=== PATIENT | female | born 1970 | race Caucasian/White ===

== ENCOUNTER → 2016-10-28 | Outpatient (CLI) | payer OTHER ==
[~2016-10-28] MED LIST: HYDROCODON-ACE1 EAC1 PO; LOPRESSOR25 PO; METOPROLOL TART25 MG PO; NABUMETONE 750750 M1 PO; NOHOMEMEDICATIONS; NORCO 5-325 TA1 EACH PO; PERCOCET 5-3251 EACH PO; RELAFEN750 MG PO; TRAMADOL 50 MG50 MG PO
== END ==
LOC: RAD 13:53
DX: Z12.31 Encounter for screening mammogram for malignant neoplasm of breast (principal)

== ENCOUNTER → 2016-10-30 | Outpatient (CLI) | payer OTHER | LOC: ULTRA 11:01 | DX: N63 Unspecified lump in breast (principal) ==

== ENCOUNTER 2017-05-13 12:33 | Emergency (ER) | payer OTHER ==
[~2017-05-13] VITALS: Ht 172.7 cm; Wt 95.3 kg
[2017-05-13] MEDS ORDERED: OMEPRAZOLE40 MG PO (12:53)
[2017-05-13] MEDS ORDERED: PEPCID AC20 MG PO (13:18)
[2017-05-13] MEDS ORDERED: BENADRYL25 MG PO (13:18)
[2017-05-13] MEDS ORDERED: PREDNISONE 20 M20 MG PO (13:18)
== END 2017-05-13 13:49 | disposition home or self-care (01) ==
LOC: ER 12:33
DX: L23.9 Allergic contact dermatitis, unspecified cause (principal); F17.210 Nicotine dependence, cigarettes, uncomplicated; Z82.2 Family history of deafness and hearing loss; Z91.018 Allergy to other foods; Z87.440 Personal history of urinary (tract) infections

== ENCOUNTER → 2017-07-01 | Outpatient (CLI) | payer OTHER ==
[~2017-07-01] MED LIST changes: +ACCUNEB SO1.25 MG/1 INH; +ANTIVERT25 MG PO; +BENADRYL25 MG PO; +CLARITIN10 MG PO; +METOCLOPRAMIDE10 MG PO; +OMEPRAZOLE40 MG PO; +PEPCID AC20 MG PO; +PREDNISONE 20 M20 MG PO
== END ==
LOC: ULTRA 11:47
DX: M79.604 Pain in right leg (principal); M79.89 Other specified soft tissue disorders; R60.0 Localized edema

== ENCOUNTER 2017-07-02 15:00 | Emergency (ER) | payer OTHER ==
[~2017-07-02] VITALS: Ht 172.7 cm; Wt 95.3 kg
--- NOTE | ~2017-07-02 | EKG ---
[facility] [address]al [place] [address] ELECTROCARDIOGRAM REPORT Name: KAREN ELISE Room #: [facility] M.R.#: [id number] Admission: Attend Phys: Discharge: Date of : 66 Report #: [id number] THIS REPORT FOR: //name// [facility] ED Test Date: 2017-07-02 Test Time: 15:28:46 Pat Name: KAREN ELISE Department: Room: Gender: F President And Chief Executive Officer: HOLLY : 1970 Requested By: Sukhi Armijo Order Number: [id number] MD: Measurements Intervals [place] Rate: 78 P: 18 OK: 181 QRS: -57 QRSD: 132 T: 15 QT: 415 QTc: 473 Interpretive Statements Sinus rhythm RBBB and LAFB Compared to ECG 08/02/2015 15:12:29 Left anterior fascicular block now present Right bundle-branch block now present [email or web address] By: [id number] Renita Maravilla MD /EPI
[~2017-07-02 15:00] MED LIST changes: -ACCUNEB SO1.25 MG/1 INH; -ANTIVERT25 MG PO; -CLARITIN10 MG PO; -METOCLOPRAMIDE10 MG PO
[2017-07-02 15:48] LABS: ABSOLUTE NEUTROPHILS 4.7 thou/uL (1.4-8.2); BASOPHILS 1.2 % (0.0-2.0); EOSINOPHILS 1.6 % (0.0-3.0); HEMATOCRIT 38.7 % (37.0-47.0); HEMOGLOBIN 13.5 gm/dL (12.0-15.0); MCH 30.8 pg (26.0-34.0); MCV 87.9 fL (80.0-100.0); MONOCYTES 6.7 % (1.0-8.0); PLATELET COUNT 254 thou/uL (150-400); POLYS 65.5 % (36.0-66.0); RDW 13.4 % (10.5-14.5); WBC 7.2 thou/uL (4.0-11.0)
[2017-07-02 15:58] LABS: ANION GAP 9 mmol/L (7-16); BUN 12 mg/dL (7-18); CALCIUM 8.9 mg/dL (8.5-10.1); CHLORIDE 106 mmol/L (98-107); CO2 26 mmol/L (21-32); CREATININE 0.7 mg/dL (0.6-1.0); GLUCOSE 125 mg/dL (74-106); SODIUM 141 mmol/L (136-145)
[2017-07-02 16:05] LABS: ALBUMIN 3.3 g/dL (3.4-5.0); SGOT 25 U/L (15-37); SGPT 28 U/L (30-65); TOTAL BILIRUBIN 0.3 mg/dL (<0.1-1.0); TOTAL PROTEIN 7.1 g/dL (6.4-8.2); TROPONIN-I < 0.04 ng/mL (<0.06)
[2017-07-02 17:09] LABS: URINE BILIRUBIN NEGATIVE (Negative); URINE BLOOD NEGATIVE (Negative); URINE CLARITY CLEAR; URINE COLOR YELLOW; URINE GLUCOSE-RANDOM* NEGATIVE (Negative); URINE KETONES NEGATIVE (Negative); URINE LEUKOCYTES-REFLEX NEGATIVE (Negative); URINE NITRITE-REFLEX NEGATIVE (Negative); URINE PROTEIN (DIPSTICK) NEGATIVE (Negative); URINE UROBILINOGEN 0.2 E.U./dl (0.2-1.0)
[2017-07-02] MEDS ORDERED: ANTIVERT25 MG PO (17:23)
[2017-07-02 17:32] VITALS: BP 116/78
[2017-07-29] MEDS ORDERED: CLARITIN10 MG PO (09:38)
[2017-07-29] MEDS ORDERED: METOCLOPRAMIDE10 MG PO (09:40)
[2017-07-29] MEDS ORDERED: ACCUNEB SO1.25 MG/1 INH (10:05)
== END 2017-07-02 17:59 | disposition home or self-care (01) ==
LOC: ER 15:00
PROVIDERS: Physician Assistant
DX: R55 Syncope and collapse (principal); R51 Headache; R10.9 Unspecified abdominal pain; R42 Dizziness and giddiness; Z88.2 Allergy status to sulfonamides; Z91.018 Allergy to other foods; Z98.890 Other specified postprocedural states

== ENCOUNTER → 2017-08-02 | Outpatient (CLI) | payer OTHER ==
[~2017-08-02] VITALS: Ht 170.2 cm; Wt 102.1 kg
[~2017-08-02] MED LIST changes: +ACCUNEB SO1.25 MG/1 INH; +ANTIVERT25 MG PO; +CLARITIN10 MG PO; +METOCLOPRAMIDE10 MG PO
--- NOTE | ~2017-08-02 | P ---
[facility] [place] [address] PROCEDURE REPORT Name: KAREN ELISE Room #: [facility] Tia#: [id number] Admission: 08/02/17 Attend Phys: Brett Monk Discharge: Date of : 66 Report #: [id number] THIS REPORT FOR: //name// CC: Brett Billy MD DATE OF SERVICE: 08/02/2017 PROCEDURE PERFORMED: Upper endoscopy with biopsies. HISTORY OF PRESENT ILLNESS: The patient is a 47-year-old female with a history of gastroesophageal reflux disease and a history of Allen's esophagus diagnosed by a different car carder several years ago. She has been taking omeprazole b.i.d. She denies any dysphagia. No significant heartburn. She is seen an wire setter for immune system reactions and was started on Reglan recently. She is tolerating this medication well. She denies any side effects. Plan is for upper endoscopy. PROCEDURE: The risks and benefits of the procedure were explained to the patient, those risks including, but not limited to bleeding, perforation, and the risk of sedation. She understood these risks and gave informed consent. Sedation was given using propofol per anesthesia. Next, using a standard Kiten upper endoscope, the scope was placed in the patient's mouth and advanced under direct vision through the esophagus, stomach, and into the second portion of the duodenum. The larynx was normal in appearance. The upper and mid esophagus was normal. In the distal esophagus, a single pink mucosal tongue extended approximately 1 cm above the GE junction. Biopsies were obtained to rule out Allen's esophagus. No evidence of esophagitis. Overall, the gastric mucosa was normal. The pylorus was normal and patent. The duodenal bulb, first and second portion were all normal. The scope was then withdrawn and the procedure terminated. The patient tolerated the procedure well. IMPRESSION: 1. Possible short segment Allen's. 2. Otherwise, normal upper endoscopy. RECOMMENDATIONS: 1. Await biopsy results. 2. Continue PPI therapy. [facility] [address] [place] [address] PROCEDURE REPORT Name: KAREN ELISE Room #: REG ALBERTINA Weber#: [id number] Admission: 08/02/17 Attend Phys: Brett Monk Discharge: Date of : 66 Report #: [id number] Thank you for allowing me to participate in her care. <ELECTRONICALLY SIGNED> By: Brett Gusman MD 08/02/17 1407 0919 1046 Brett Gusman MD /nt
--- NOTE | ~2017-08-02 | S ---
[facility] [place] [address] SURGICAL PATH RPT PROCEDURE Name: KAREN ELISE Room #: REG ALBERTINA SánchezEstellaAdrienneEstella#: [id number] Admission: 08/02/17 Date of : 66 Discharge: Report #: [id number] Path Case #: [id number] PATHOLOGY REPORT COLLECTION DATE: 08/02/2017 RECEIVED DATE: 08/02/2017 SUBMITTING PHYS: Dr. Brett Gusman OTHER PHYS: Dr. Jose Billy SPECIMEN(S) RECEIVED: A.Bx of distal esophagus R/O Allen's * * * * * * * * * * * * FINAL DIAGNOSIS: Gastroesophageal mucosa, distal esophagus rule out Allen's, endoscopic biopsy: - Gastric cardia-type mucosa with moderate chronic inflammation. - Squamous mucosa with mild esophagitis. - Negative for intestinal metaplasia or dysplasia. (IUV:pit; 08/03/2017) PATHOLOGIST: Carla Garnica M.D. REPORT ELECTRONICALLY SIGNED BY: Carla Garnica M.D. DATE/TIME: 08/03/2017 11:44 * * * * * * * * * * * * GROSS PATHOLOGY: The specimen is received in formalin, labeled "Karen Elise BX of distal esophagus rule out Allen's," and consists of 2 fragments of reeves soft tissue measuring 0.4 x 0.3 x 0.1 cm and 0.3 x 0.2 x 0.1 cm. They are entirely submitted in cassette A1. (SDY; 08/02/2017) CLINICAL HISTORY: Rule out Allen's, history Allen's INITIAL CPT CODE(S): A; 19549 Professional services performed by [facility] at [facility] [address] , [place] [address] Technical services performed by [facility] at [address] [place] [address], [address] [address] [facility] [address] [place] [address] SURGICAL PATH RPT PROCEDURE Name: KAREN ELISE Room #: REG ALBERTINA Weber#: [id number] Admission: 08/02/17 Date of : 66 Discharge: Report #: [id number] Path Case #: [id number] [facility] [address] [address] PHONE: [phone] DIRECTOR: Orlin Saldivar M.D. * * * END OF REPORT * * *
== END | disposition home or self-care (01) ==
LOC: GI 08:10
DX: K21.0 Gastro-esophageal reflux disease with esophagitis (principal); K31.89 Other diseases of stomach and duodenum; J44.9 Chronic obstructive pulmonary disease, unspecified; F17.210 Nicotine dependence, cigarettes, uncomplicated; Z98.51 Tubal ligation status; Z98.890 Other specified postprocedural states; Z79.899 Other long term (current) drug therapy
CPT/HCPCS: 62110

== ENCOUNTER → 2017-11-26 | Outpatient (CLI) | payer OTHER | LOC: MRI 10-18 06:10 → RAD 06:28 → MRI 06:28 | DX: Z12.31 Encounter for screening mammogram for malignant neoplasm of breast (principal); M48.02 Spinal stenosis, cervical region; G31.9 Degenerative disease of nervous system, unspecified; R20.2 Paresthesia of skin ==

== ENCOUNTER → 2018-01-03 | Outpatient (CLI) | payer OTHER | LOC: ULTRA 09:55 | DX: K76.0 Fatty (change of) liver, not elsewhere classified (principal) ==

== ENCOUNTER → 2018-01-27 | Outpatient (CLI) | payer OTHER | LOC: CAT 07:19 | DX: K57.30 Diverticulosis of large intestine without perforation or abscess without bleeding (principal); E27.9 Disorder of adrenal gland, unspecified ==

== ENCOUNTER → 2018-02-14 | Outpatient (CLI) | payer OTHER | LOC: NUC 09:02 | DX: R10.11 Right upper quadrant pain (principal); Z87.891 Personal history of nicotine dependence ==

== ENCOUNTER → 2018-07-21 | Outpatient (CLI) | payer OTHER | LOC: NUC 09:48 | DX: R10.11 Right upper quadrant pain (principal) ==

== ENCOUNTER 2018-08-03 05:48 | Observation (INO) | payer OTHER ==
[~2018-08-03] VITALS: Ht 172.7 cm; Wt 102.1 kg
[~2018-08-03 05:48] MED LIST changes: +VITAMIN D5000 UNIT PO
[2018-08-03 09:00] VITALS: BP 120/77
[2018-08-03 14:24] VITALS: BP 119/79
[2018-08-03 17:40] VITALS: BP 119/79
[2018-08-03 20:11] VITALS: BP 125/65
[2018-08-04 05:33] VITALS: BP 98/53
[2018-08-04 10:54] VITALS: BP 98/53
[2018-08-04 13:47] VITALS: BP 98/53
--- NOTE | 2018-08-05 16:06 | PATH ---
[facility] [address] [place] [address] PATHOLOGY RPT PROCEDURE Name: KAREN ELISE CARLINE Room #: 423-1 ANA MARIA Weber#: [id number] ������������������ Admission: 08/03/18 ������������������ Date of : 66 Discharge: 08/04/18 Report #: [id number] Path Case #: [id number] [facility] Accession Number: [id number] . 01 Material submitted: . GALLBLADDER AND CONTENTS . 01 Clinical history: . Gallbladder pain . 02 Diagnosis: Gallbladder, cholecystectomy: - Mild chronic cholecystitis. - Cholesterolosis. (IUV:monica; 08/05/2018) QMS/08/05/2018 . 02 Electronically signed: . Carla Garnica MD, Pathologist NPI- [id number] . 01 Gross description: . Received in formalin labeled "Karen Elise, gallbladder and contents," is a previously opened gallbladder measuring 8.2 x 3.3 x 1.6 cm in greatest dimensions. The serosal surface is wrinkled to shaggy, dark green-yellow and partially adipose-covered in appearance. The mucosal surface is shaggy and dark green-brown in appearance, stippled with yellow highlights. The mucosa measures 0.1 cm in thickness, with a gallbladder wall thickness of up to 0.5 cm. No polyps or nodules are noted grossly. Calculi are not present within the specimen or specimen container. Emergency Medicine Nurse Practitioner sections of the infundibulum, body and fundus are submitted in cassette A1. (DAC; 08/04/2018) XDC/XDC . 02 Pathologist provided ICD-10: K81.1, K82.4 . 02 CPT . 522108 Specimen Comment: A courtesy copy of this report has been sent to Specimen Comment: [phone], . Specimen Comment: Report sent to / DR DING Performed at: [address] [facility], [place], [place] [address] MD Linwood Dean MD Phone: [phone] [place] [address] PATHOLOGY RPT PROCEDURE Name: ELISEKARENMARTY CROWLEY Room #: 423-1 ANA MARIA Weber#: [id number] ������������������ Admission: 08/03/18 ������������������ Date of : 66 Discharge: 08/04/18 Report #: [id number] Path Case #: [id number] Performed at: [address] [id number] MD Carla Garnica MD Phone: [phone]
--- NOTE | 2018-08-27 12:08 | H ---
[facility] [place] [address] HISTORY AND PHYSICAL Name: KAREN ELISE Room #: 423-1 ANA MARIA Weber#: [id number] Admission: 08/03/18 ������������������ Attend Phys: Davon Torre MD Discharge: 08/04/18 ������������������ Date of : 66 Report #: [id number] THIS REPORT FOR: //name// CC: Brett Billy MD Preoperative History and Physical PREOPERATIVE DIAGNOSIS: Acalculous cholecystitis. HISTORY OF PRESENT ILLNESS: The patient is a 48-year-old who has had abdominal pain in the right upper quadrant since 04/2017. The patient remembers going to movie and the patient developed pain after eating some popcorn. The patient then developed issues with sun allergy/solar urticaria. The patient has had evaluation for the pain. The patient's pain is there all the time, located in the right lower quadrant, does seem to be related to eating at times. The patient has had multiple workups with ultrasound, CAT scan and MRCP, PIPIDA scan. The patient did have an MRI for [facility] that showed thickening of the gallbladder consistent with adenomyomatosis. The patient's MRCP here at [facility] in February showed a Phrygian cap prominence of the gallbladder. The patient went up to [facility] for her solar urticaria. The patient told that her immune system is out of whack. The patient did have EGD also october in August of last year. She has had history of Allen's esophagus, but her EGD looks like it was better. The patient has trouble eating spicy food. Occasionally, fast food will bother her. No nausea or vomiting. She does complain of bloating. No gas. She has had loose stools. The patient complains of bloating in the epigastrium, particularly after meals and she is feeling tired. She has been able to work. Pain is sharp and the sharp intense part would last a few seconds. There is an awareness after that. The patient seen in the office. She was noted to be quite tender in the right upper quadrant where the gallbladder is located. Recommending that the patient undergo laparoscopic cholecystectomy. No history of gallbladder disease in the family. PAST MEDICAL HISTORY: The patient denies heart disease, denies high blood pressure, denies diabetes, denies lung disease, denies liver disease, denies kidney disease, denies bleeding disorder. Denies history of blood clot. PAST SURGICAL HISTORY: Two C-sections, tubal ligation, back surgery in 2010. She had laparoscopy and a bladder repair in 2002. MEDICATIONS: Omeprazole and tramadol. FAMILY HISTORY: There is family history of breast cancer. Father has history of colon cancer, mother 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 She does smoke a pack a day. Does not drink. REVIEW OF SYSTEMS: Complains of some heart palpitations and cramping in her back and the issue with solar urticaria. PHYSICAL EXAMINATION: GENERAL: Well-nourished female, moderately obese. She is not in acute distress. HEENT: Pupils reactive to light. Sclerae nonicteric. NECK: Soft and supple, no masses. LUNGS: Clear to auscultation. HEART: Regular rate and rhythm. No murmur or gallop. ABDOMEN: Shows remarkable tenderness in right upper quadrant. Positive Shipley sign. No guarding or rigidity detected. EXTREMITIES: No cyanosis, clubbing or edema. NEUROLOGY: Motor function and sensory exam is normal. IMPRESSION: The patient is a 48-year-old who has had abdominal pain since 04/2017. Pain is located in the right upper quadrant. First episode occurred when she was at the movie after eating popcorn. The patient has had multiple episodes. Now, the pain is on a daily basis. No stones were identified on ultrasound or CAT scan. The MRI shows Phrygian cap, which is associated with dysfunction in the gallbladder. Her PIPIDA scan apparently did show delayed visualization of the gallbladder. The gallbladder took 60 minutes to be seen well. I do think that her symptoms are gallbladder related. Laparoscopic cholecystectomy is recommended. The patient has had extensive workup and nothing else needs to be performed. Laparoscopic cholecystectomy was discussed in detail. Risk of bleeding, infection, and common bile duct injury was discussed. The patient's postoperative course was discussed. The patient understands the procedure and wishes to proceed. ��������������������������������������������� <ELECTRONICALLY SIGNED> ���������������������������������������� By: Davon Torre MD ��������������������������������������������� 08/27/18 1208 2212 8427 Davon Torre MD /nt
--- NOTE | 2018-08-27 12:08 | O ---
[facility] [place] [address] OPERATIVE REPORT Name: KAREN ELISE Room #: 423-1 [facility] Nilam Weber#: [id number] Admission: 08/03/18 ������������������ Attend Phys: Davon Torre MD Discharge: 08/04/18 ������������������ Date of : 66 Report #: [id number] THIS REPORT FOR: //name// CC: Jose Torre DATE OF SERVICE: 08/03/2018 PREOPERATIVE DIAGNOSIS: Cholecystitis, acalculous. POSTOPERATIVE DIAGNOSES: Cholecystitis with cholesterolosis. PROCEDURES PERFORMED: Laparoscopic cholecystectomy with cholangiogram, lysis of omental adhesion to the right upper quadrant abdominal wall. ANESTHESIA: General. SURGEON: Davon Torre MD. COMPLICATIONS: None. ESTIMATED BLOOD LOSS: 10 mL. DESCRIPTION OF OPERATION: With the patient under general anesthesia, abdomen was prepped and draped in sterile fashion. IV antibiotic was administered. Timeout was performed. The patient has a lower midline incision up to the umbilicus. Incision was made above the umbilicus. Fascia was identified and grasped with hemostat. Fascia was then opened under visualization, 0 Vicryl suture placed on the fascia for retraction. Veress needle was then placed through the peritoneum. Abdominal cavity was able to be insufflated with CO2. An 11 mm trocar was placed through the fascia defect and through the peritoneum. The patient was noted to have adhesions in this area. The CO2 was placed through the trocar and under visualization with a 10-mm scope, the scope was advanced into the trocar. I could see the adhesion to the wall and there was a little thin area just against the wall, but I was able to drive the camera through. Once I went through this area, I was able to see the right upper quadrant. A 5 mm trocar was placed in the right epigastric site and then a 5 mm trocar was placed in the right upper quadrant at the midclavicular line. Using the 5 mm scope, the adhesions were viewed from the upper trocar and the adhesions were taken down. Cautery and blunt dissection was used. The adhesion was freed to the point where the original 11 mm trocar was freed from the adhesion. The third 5 mm trocar was placed in the right upper quadrant laterally. I am not sure the reason for her adhesions of the omentum to the wall could be from her prior C-sections. The adhesions were taken down in order to the procedure and I did not try to free all the adhesions down lower. The [facility] [address] [place] [address] OPERATIVE REPORT Name: KAREN ELISE Room #: 423-1 ANA MARIA Weber#: [id number] Admission: 08/03/18 ������������������ Attend Phys: Davon Torre MD Discharge: 08/04/18 ������������������ Date of : 66 Report #: [id number] gallbladder was noted to be moderately distended. The gallbladder was decompressed with a needle, aspirating the bile out of it. The gallbladder was partially deflated this way. The gallbladder was then lifted over the liver. There was a Phrygian cap identified at the fundus. This area of the gallbladder was noted to be thickened. The gallbladder was lifted cephalad. The proximal part of the gallbladder did have adhesions on it. This included filmy adhesive tissue. These adhesions were taken down freeing the proximal part of the gallbladder. Peritoneum was dissected free mediolaterally. A tubular structure was identified underneath the peritoneum. To me this look more like the cystic artery, which was more inferiorly located and overlapping the cystic duct in the typical position, which was slightly more cephalad. This structure was seen to go on to the gallbladder wall. This was isolated, clipped x 2 proximally, 1 distally and divided. Once I divided, you could see the wall of the intima, which was consistent with the cystic artery. There was another branch just behind this, I also clipped and divided. The cystic duct was then identified. The cystic duct was moderately dilated and there was some thickening in this area also. The gallbladder junction to the cystic duct was isolated. The common duct was not visualized, but likely more medial and posteriorly located. The cystic duct was isolated without difficulty. A clip was placed in junction of cystic duct to the gallbladder. Opening was made in the cystic duct. Cholangiogram catheter was placed. Fluoroscopic cholangiogram was obtained. The cholangiogram catheter identified in the cystic duct. The cystic duct has a tortuous appearance. The common duct then filled out. On initial injection, the common duct filled and there appeared to be some debris or sludge in the distal common duct, which with further injection of contrast flushed through. There was some narrowing of the distal common duct, but dye flowed readily into the duodenum and the duct appeared clear of any further filling defect. Cholangiogram catheter was then removed. The proximal cystic duct was then clipped x 2 and then divided. The clip did go all the way across well. Gallbladder was freed from the liver bed. On the liver bed posteriorly, there was a branch that was pretty small. This was clipped x 1. Gallbladder was freed from the liver bed. Most of the gallbladder attachment to the liver was fairly thin. When you got more distally on the gallbladder, there was a thickening present consistent with inflammation. Gallbladder was free, placed in a specimen bag, retrieved through the infraumbilical port. Gallbladder was opened off the field. At the site of the Phrygian cap, there was a thickening of the gallbladder wall. There was remarkable cholesterolosis identified in the lining. No stones were seen. Liver bed was checked, hemostasis excellent. Irrigation was aspirated out. Trocars then removed. The original adhesions that were taken down looked hemostatic. The CO2 was evacuated as much as possible. The fascia defect above the umbilicus was closed with [id number]-wi-qcozq [facility] [address] [place] [address] OPERATIVE REPORT Name: KAREN ELISE CARLINE Room #: 423-1 ANA MARIA Weber#: [id number] Admission: 08/03/18 ������������������ Attend Phys: Davon Torre MD Discharge: 08/04/18 ������������������ Date of : 66 Report #: [id number] Vicryl without difficulty. Skin was irrigated. Skin was closed with 5-0 PDS. Steri-Strip and Band-Aids applied. The patient tolerated the procedure well. ��������������������������������������������� <ELECTRONICALLY SIGNED> ���������������������������������������� By: Davon Torre MD ��������������������������������������������� 08/27/18 1208 1526 1607 Davon Torre MD /nt
== END 2018-08-04 13:48 | disposition home or self-care (01) ==
LOC: TBA 05:48 → OR 05:48 → TBA 05:49 → OR 08:34 → 4E 14:16 → OR 15:08 → 4E 08-04 13:48
PROVIDERS: ADMIT Surgery
DX: K81.1 Chronic cholecystitis (principal); K82.4 Cholesterolosis of gallbladder; F17.210 Nicotine dependence, cigarettes, uncomplicated; Z79.899 Other long term (current) drug therapy
CPT/HCPCS: 50010; 50101; 50411; 50555; 50558; 51489; 51687; 53307; 53310; 53312; 55245; 55317; 56462; 56525; 56526; 62110; 62900; 70005

== ENCOUNTER 2020-12-10 12:48 | Emergency (ER) | payer OTHER ==
[~2020-12-10] VITALS: Ht 172.7 cm; Wt 104.3 kg
[2020-12-10 13:42] LABS: CASTS None Seen /LPF (None Seen); MUCUS 4-6 Moderate strn/LPF (None Seen); SQUAMOUS 4-10 Moderate /LPF (0-3)
[2020-12-10 13:43] LABS: BACTERIA-REFLEX 1-9 Few /HPF (None Seen); CRYSTALS None Seen /LPF (None Seen); URINE RBC 3-10 Few /HPF (NONE SEEN); WBC CLUMPS Few (None Seen)
[2020-12-10 13:46] LABS: URINE CLARITY HAZY; URINE COLOR YELLOW; URINE PROTEIN (DIPSTICK) ND (Negative)
[2020-12-10 13:47] LABS: ICTOTEST (BILI CONFIRMATORY) ND (Negative); SSA (PROTEIN CONFIRMATORY) ND mg/dL (Negative); URINE BILIRUBIN ND (Negative); URINE BLOOD ND (Negative); URINE GLUCOSE-RANDOM* ND (Negative); URINE KETONES ND (Negative); URINE LEUKOCYTES-REFLEX ND (Negative); URINE NITRITE-REFLEX ND (Negative); URINE REDUCING SUBSTANCE ND %; URINE UROBILINOGEN ND E.U./dl (0.2-1.0)
[2020-12-10 13:48] LABS: URINE SPECIFIC GRAVITY ND (1.005-1.035)
[2020-12-10] MEDS ORDERED: FOLIC ACID1 MG PO (14:19)
[2020-12-10] MEDS ORDERED: METFORMIN HCL500 M3 PO (14:20)
[2020-12-10] MEDS ORDERED: CRESTOR5 MG PO (14:20)
[2020-12-10] MEDS ORDERED: PROTONIX40 M2 PO (14:21)
[2020-12-10] MEDS ORDERED: LISINOPRIL2.5 MG PO (14:22)
[2020-12-10] MEDS ORDERED: CIPRO500 M1 PO (14:22)
[2020-12-10] MEDS ORDERED: HYDROXYZINE HCL25 M2 PO (14:22)
[2020-12-10] MEDS ORDERED: LEXAPRO 10 MG T10 M1 PO (14:23)
[2020-12-10] MEDS ORDERED: METHOTREXATE 22.5 M1 PO (14:24)
[2020-12-10] MEDS ORDERED: XOLAIR150 MG SUBQ (14:25)
[2020-12-10 15:12] LABS: BASOPHILS 1.3 % (0.0-2.0); EOSINOPHILS 2.2 % (0.0-3.0); HEMATOCRIT 37.8 % (37.0-47.0); LYMPHOCYTES 14.9 % (24.0-44.0); MCH 30.5 pg (26.0-34.0); MCHC 34.4 g/dL (28.0-37.0); MCV 88.5 fL (80.0-100.0); MONOCYTES 8.9 % (1.0-8.0); PLATELET COUNT 229 thou/uL (150-400); POLYS 72.7 % (36.0-66.0); RBC 4.27 mil/uL (4.20-5.00); RDW 13.3 % (10.5-14.5); WBC 8.3 thou/uL (4.0-11.0)
[2020-12-10 15:20] LABS: CALCIUM 7.9 mg/dL (8.5-10.1); CREATININE 0.9 mg/dL (0.6-1.0); POTASSIUM 3.7 mmol/L (3.5-5.1)
[2020-12-10 15:25] LABS: ALBUMIN 3.2 g/dL (3.4-5.0); TOTAL BILIRUBIN 0.3 mg/dL (0.2-1.0); TOTAL PROTEIN 7.3 g/dL (6.4-8.2)
[2020-12-10 17:30] VITALS: BP 120/63
== END 2020-12-10 17:30 | disposition home or self-care (01) ==
LOC: ER 12:48
PROVIDERS: Emergency Medicine; Nurse Practitioner
DX: N39.0 Urinary tract infection, site not specified (principal); K21.9 Gastro-esophageal reflux disease without esophagitis; F41.9 Anxiety disorder, unspecified; I10 Essential (primary) hypertension; F17.210 Nicotine dependence, cigarettes, uncomplicated; Z79.899 Other long term (current) drug therapy; Z79.2 Long term (current) use of antibiotics; Z91.018 Allergy to other foods; Z88.2 Allergy status to sulfonamides; Z91.048 Other nonmedicinal substance allergy status; Z98.51 Tubal ligation status; Z98.890 Other specified postprocedural states

== ENCOUNTER 2021-06-18 10:53 | Inpatient (IN) | payer OTHER ==
[~2021-06-18] VITALS: Ht 172.7 cm; Wt 99.8 kg
[~2021-06-18 10:53] MED LIST changes: +CIPRO500 M1 PO; +CRESTOR5 MG PO; +FOLIC ACID1 MG PO; +HYDROXYZINE HCL25 M2 PO; +LEXAPRO 10 MG T10 M1 PO; +LISINOPRIL2.5 MG PO; +METFORMIN HCL500 M3 PO; +METHOTREXATE 22.5 M1 PO; +PROTONIX40 M2 PO; +XOLAIR150 MG SUBQ
[2021-06-18 10:59] VITALS: BP 152/88
[2021-06-18 11:57] LABS: ABSOLUTE NEUTROPHILS 6.3 thou/uL (1.4-8.2); BASOPHILS 0.8 % (0.0-2.0); EOSINOPHILS 1.1 % (0.0-3.0); HEMATOCRIT 39.4 % (37.0-47.0); HEMOGLOBIN 13.3 gm/dL (12.0-15.0); LYMPHOCYTES 16.3 % (24.0-44.0); MCH 30.3 pg (26.0-34.0); MCHC 33.7 g/dL (28.0-37.0); MONOCYTES 6.4 % (1.0-8.0); PLATELET COUNT 259 thou/uL (150-400); POLYS 75.4 % (36.0-66.0); RBC 4.37 mil/uL (4.20-5.00); RDW 14.2 % (10.5-14.5); WBC 8.3 thou/uL (4.0-11.0)
[2021-06-18 12:12] LABS: CREATININE 0.8 mg/dL (0.6-1.0); POTASSIUM 3.8 mmol/L (3.5-5.1)
[2021-06-18 12:18] LABS: BE(vivo) 0.8 mmol/L (-2 to +3); HCO3 24.8 mmol/L (22.0-26.0); PCO2 37.4 mmHg (35.0-45.0); PO2 86.2 mmHg (80.0-100.0); pH 7.439 (7.360-7.450); sO2 96.9 % (92.0-98.0)
[2021-06-18 12:22] LABS: ALBUMIN 3.4 g/dL (3.4-5.0); TOTAL BILIRUBIN 0.4 mg/dL (0.2-1.0); TOTAL PROTEIN 7.7 g/dL (6.4-8.2)
[2021-06-18 14:14] LABS: URINE BILIRUBIN NEGATIVE (Negative); URINE BLOOD TRACE (Negative); URINE CLARITY CLEAR; URINE COLOR YELLOW; URINE GLUCOSE-RANDOM* NEGATIVE (Negative); URINE KETONES NEGATIVE (Negative); URINE LEUKOCYTES-REFLEX NEGATIVE (Negative); URINE NITRITE-REFLEX NEGATIVE (Negative); URINE PROTEIN (DIPSTICK) NEGATIVE (Negative); URINE UROBILINOGEN 0.2 E.U./dl (0.2-1.0)
[2021-06-18 16:17] VITALS: BP 121/76
--- NOTE | 2021-06-18 19:07 | NUR ---
Pt transferred to unit from ED. Pt a&ox4. Pt states she does not have any pain, unless she is ambulating. Up to the floor on 4L O2. RT decreased O2 to 2L. Admission completed. Family at bedside. No complaints at this time. Call light within reach. Report given to yi ZHOU.
[2021-06-19 04:19] VITALS: BP 110/58
--- NOTE | 2021-06-19 06:06 | NUR ---
ASSUMED CARE OF PT AT 1900. PT ASSESSED TO BE AOX4 51F PRESENTING WITH INFECTION AND SOA. PT IS ABLE TO SLEEP THROUGHOUT THE NIGHT WITH NO COMPLAINTS, VSS. PT IS STABLE ON 2L O2 WITH TREATMENTS, CAN AMBULATE STEADILY, AND IS ON A REGULAR DIET. PT WILL MOST LIKELY GO HOME IN AM ON ORAL ABX. WILL CONT TO MONITOR AND PASS ON TO DAY SHIFT RN.
--- NOTE | 2021-06-19 07:42 | EKG ---
[address] [address] ELECTROCARDIOGRAM REPORT Name: KAREN ELISE CARLINE Room #: 447-P ADM IN M.R.#: [id number] Admission: 06/18/21 Attend Phys: Elliott Campa MD Discharge: Date of : 66 Report #: [id number] [facility] ED Test Date: 2021-06-18 Test Time: 11:03:30 Pat Name: KAREN ELISE Department: Room: 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1970 Requested By: Chastity Eason Order Number: [id number] MD: Satnam Mace Measurements Intervals [place] Rate: 92 P: 52 VT: 174 QRS: 108 QRSD: 135 T: -3 QT: 379 QTc: 469 Interpretive Statements Sinus rhythm Right bundle branch block Compared to ECG 07/02/2017 15:28:46 Left anterior fascicular block no longer present Electronically Signed On 06-19-2021 7:42:33 MARINE ENGINE MACHINIST by Satnam Mace [email or web address] <ELECTRONICALLY SIGNED> By: Satnam Mace MD, [facility] 06/19/21 0742 1103 02 Satnam Mace MD, FACC /EPI
[2021-06-19 08:03] VITALS: BP 103/57
--- NOTE | 2021-06-19 09:00 | NUR ---
51 year old female, A & o x4, and able to make her needs know. Here with complaints of shortness of air. Currently on o2 2 L/nc, no home oxygen. lots better, no longer hurts to breathe, ready to go home per estee. Prior to hospital, lives at home wit her son, she is independent, works outside the home. drives. No DME. Will cont following if needs arise. Anticipate dc home no needs.
[2021-06-19] MEDS ORDERED: LEVOFLOXACIN750 MG PO (10:20)
--- NOTE | 2021-06-19 10:35 | NUR ---
Assumed care of pt at 0700. Pt a&ox4. Denies pain. 2L O2. IV antibiotic infusing. Pt wants to go home today. Provider aware. Will continue to monitor.
[2021-06-19 11:23] VITALS: BP 103/57
== END 2021-06-19 12:05 | disposition home or self-care (01) | DRG 193 ==
LOC: ER 10:53 → 4S 14:22 → EROBS 14:22 → 4S 16:46
PROVIDERS: Physician Assistant; ADMIT Hospitalist; ATTEND Hospitalist
DX: J18.9 Pneumonia, unspecified organism (principal); J96.01 Acute respiratory failure with hypoxia; I31.3 Pericardial effusion (noninflammatory); J91.8 Pleural effusion in other conditions classified elsewhere; D84.9 Immunodeficiency, unspecified; R79.1 Abnormal coagulation profile; K22.70 Barrett's esophagus without dysplasia; K21.9 Gastro-esophageal reflux disease without esophagitis; I10 Essential (primary) hypertension; E11.9 Type 2 diabetes mellitus without complications; D35.02 Benign neoplasm of left adrenal gland; L56.3 Solar urticaria; R07.2 Precordial pain; M06.9 Rheumatoid arthritis, unspecified; I45.10 Unspecified right bundle-branch block; E66.9 Obesity, unspecified; E78.5 Hyperlipidemia, unspecified; F17.210 Nicotine dependence, cigarettes, uncomplicated; F41.9 Anxiety disorder, unspecified; Z20.822 Contact with and (suspected) exposure to COVID-19; Z98.891 History of uterine scar from previous surgery; Z82.49 Family history of ischemic heart disease and other diseases of the circulatory system; Z83.49 Family history of other endocrine, nutritional and metabolic diseases; Z79.899 Other long term (current) drug therapy; Z88.2 Allergy status to sulfonamides; Z91.018 Allergy to other foods; Z91.09 Other allergy status, other than to drugs and biological substances; Z71.6 Tobacco abuse counseling; Z68.33 Body mass index [BMI] 33.0-33.9, adult
CPT/HCPCS: 10100

== ENCOUNTER → 2021-06-24 | Outpatient (CLI) | payer OTHER ==
[~2021-06-24] MED LIST changes: +LEVOFLOXACIN750 MG PO
== END ==
LOC: RAD 12:26
PROVIDERS: ATTEND Nurse Practitioner
DX: J18.9 Pneumonia, unspecified organism (principal)